=== PATIENT | male | born 1985 | race Two or more races ===

== ENCOUNTER 2024-01-10 10:57 | Inpatient (IN) | payer MEDICAID, OTHER ==
[2024-01-10] VITALS (34 sets, daily range): BP systolic 76–135; BP diastolic 14–86; PULSE 0–123; RESP 16–36; TEMP 99.7–100.4; O2SAT 92–100
[~2024-01-10] VITALS: Ht 170.2 cm; Wt 148.6 kg
[~2024-01-10 10:57] MED LIST: ALLO100T PO; AMIO200T33 PO; AMOX250C3 PO; APIX5TAB PO; ATOR-507 PO; CARV25TA55 PO; FURO40TA4 PO; INSU100I54 SC; METF-370 PO; METO-289 PO; METO2.5T PO; POTA-215 PO; SACU1TAB4 PO; SEMA4INJ SC; SENN8.6T83 PO; TAMS0.4C39 PO
[2024-01-10] MEDS: AMIODARONE 450mg/250ml AE 250 ML IV SCH ×2 (11:25→17:36)
[2024-01-10] MEDS: DOPamine 1600MCG/ML D5W 250 ML IV SCH (11:28)
[2024-01-10] MEDS: EPINEPHrine HCL 1 MG/10 ML SYRG ONE (11:53)
[2024-01-10] MEDS: AMIODARONE 450mg/250ml AE 250 ML IV ONE (11:54)
[2024-01-10] MEDS: MIDAZOLAM HCL 2MG/2ML 2ml VIAL (1mg/ml) IV ONE (11:56)
[2024-01-10] MEDS: MIDAZOLAM HCL 2MG/2ML 2ml VIAL (1mg/ml) ONE (11:56)
[2024-01-10 12:06] LABS: Hematocrit 46.9 % (41.0-53.0); Hemoglobin 15.4 g/dL (13.5-17.5); Mean Corpuscular Hgb Conc. 32.9 g/dL (32.0-36.0); Mean Corpuscular Volume 94.5 fL (80.0-100.0); Platelet Count (auto) 243 10^3/uL (140-450); Red Blood Cells 4.97 10^6/uL (4.5-5.90); Red Cell Distribution Width 16.4 % (11.8-14.3); White Blood Cell 14.1 10^3/uL (4.4-10.8)
[2024-01-10 12:13] LABS: Alanine Aminotransferase 47 U/L (7-40); Albumin 3.8 g/dL (3.2-4.8); Alkaline Phosphatase 83 U/L (46-116); Anion Gap 18 (5-15); Aspartate Aminotransferase 50 U/L (13-40); BUN/Creatinine Ratio 8.1 (10.0-20.0); Basophils % (manual) 0 (0.0-2.0); Blast Cells 0; Blood Urea Nitrogen 15 mg/dL (9-23); Calcium 9.9 mg/dL (8.7-10.4); Carbon Dioxide 21 mmol/L (20-30); Chloride 103 mmol/L (98-107); Glucose 323 mg/dL (74-106); Promyelocytes % 0; Reactive Lymphocytes 0; Sodium 142 mmol/L (136-145)
[2024-01-10 12:14] LABS: Bilirubin, Total 1.2 mg/dL (0.2-1.0); Total Protein 6.3 g/dL (5.7-8.2)
[2024-01-10 12:15] LABS: Potassium 2.4 mmol/L (3.5-5.1)
[2024-01-10] MEDS: MIDAZOLAM DRIP 50 mg/50mL 50 ML IV SCH (12:29)
[2024-01-10] MEDS: MIDAZOLAM DRIP 50 mg/50mL 50 ML IV ONE (12:29)
[2024-01-10 12:32] LABS: Band Neutrophils % (manual) 7; Eosinophils % (manual) 1 (0-7); Lymphocytes % (manual) 71 (10.0-50.0); Metamyelocytes % 1; Monocytes % (manual) 1 (0-12); Myelocytes % 1; Platelet Estimate Adequate
[2024-01-10] MEDS: PANTOPRAZOLE 40 MG/10 ML VIAL INJ IV ONE (12:37)
[2024-01-10 13:27] LABS: Acetaminophen < 2.0 UG/ML (10.0-20.0)
[2024-01-10 13:28] LABS: Salicylate < 3.0 mg/dL (2.8-20.0)
[2024-01-10] MEDS ORDERED: ONDANSETRON HCL 4 MG/2 ML VIAL IV PRN (13:30)
[2024-01-10] MEDS ORDERED: IBUPROFEN 100MG/5ML ORAL SUSP 100 MG/5 ML UD GT PRN (13:30)
[2024-01-10] MEDS ORDERED: METOPROLOL TARTRATE 1MG/1ML-5ML VIAL IV PRN (13:30)
[2024-01-10] MEDS ORDERED: DEXTROSE (50%) 50ML SYRG IV PRN (13:30)
[2024-01-10 13:35] LABS: Lactic Acid w/Reflex 5.4 mmol/L (0.4-2.0)
[2024-01-10 13:47] LABS: Amphetamine Screen, Urine Neg (NEGATIVE)
[2024-01-10 13:48] LABS: Barbiturate Scree,Urine Neg (NEGATIVE); Benzodiazephine Screen, Urine Neg (NEGATIVE); Cannabinoid Screen, Urine Neg (NEGATIVE); Cocaine Screen, Urine Neg (NEGATIVE); Opiate Scree,Urine Neg (NEGATIVE); Phencyclidine Screen, Urine Neg (NEGATIVE)
[2024-01-10 13:50] LABS: Urine Bacteria FEW /hpf (None Seen); Urine Blood 2+ /uL (Negative); Urine Clarity Turbid (Clear); Urine Color Light-Yellow (Yellow); Urine Mucus FEW (None Seen); Urine Protein, UAD 3+ (Negative); Urine Specific Gravity 1.009 (1.001-1.035); Urine Urobilinogen Normal (Negative); Urine WBC 44 /hpf (0 - 3)
[2024-01-10 13:54] LABS: Blood Alcohol < 3.0 mg/dL (<10); Magnesium 2.1 mg/dL (1.6-2.6)
[2024-01-10] MEDS ORDERED: fentaNYL Drip 2500mCg/250mlNS 250 ML IV SCH (14:00)
[2024-01-10] MEDS: fentaNYL Drip 2500mCg/250mlNS 250 ML IV SCH (14:07)
[2024-01-10] MEDS ORDERED: MORPHINE SULFATE INJ 2 MG/ml SYRG IV PRN (14:30)
[2024-01-10] MEDS ORDERED: NITROGLYCERIN 0.4 MG SL TAB SL PRN (14:30)
[2024-01-10 14:40] LABS: Base Excess 0.6 mmol/L (-2.0-3.0)
[2024-01-10] MEDS: SODIUM CHLOR 0.9% PF (SALINE LOCK) 10ML VIAL/SYR IV SCH (14:59)
[2024-01-10] MEDS: cefTRIAXone 1GM/50ML D5W 50 ML IV ONE (15:05)
[2024-01-10] MEDS: POTASSIUM CHL 20MEQ/100ML 100 ML IV SCH (16:05)
[2024-01-10 16:11] LABS: COVID19 ANTIGEN SOFIA FIA NEGATIVE (NEGATIVE)
[2024-01-10] MEDS: LORazepam 2MG/ML-1ML VIAL IV ONE (16:37)
[2024-01-10] MEDS: LORazepam 2MG/ML-1ML VIAL ONE (16:41)
[2024-01-10 16:47] LABS: LDL Cholesterol 72 mg/dL (< 100); Triglycerides 174 mg/dL (< 150)
[2024-01-10 16:49] LABS: Cholesterol 129 mg/dL (< 200); HDL Cholesterol 30 mg/dL (40-59)
[2024-01-10] MEDS: PROPOFOL 100 ML IV ONE (17:35)
[2024-01-10] MEDS: InsuLIN REG 1unit/0.01ml Soln (100units/ml) SC SCH (17:56)
[2024-01-10] MEDS: ACCU-CHEK COMFORT CURVE STRIP VI SCH (17:56)
[2024-01-10] MEDS: PROPOFOL 100 ML IV SCH (17:57)
[2024-01-10] MEDS: NOREPINEPHRINE 8 MG/250ML KIT 250 ML IV SCH (20:03)
[2024-01-10] MEDS: NOREPINEPHRINE 8 MG/250ML KIT 250 ML IV ONE (20:04)
[2024-01-10] MEDS: FAMOTIDINE (10MG/ML) 2ML VL IV SCH (21:45)
[2024-01-10] MEDS: HEPARIN SODIUM (PORCINE) 5000 UNITS/ML 1ML VIAL SC SCH (21:45)
[2024-01-11] VITALS (102 sets, daily range): BP systolic 63–157; BP diastolic 43–85; PULSE 62–116; RESP 10–43; TEMP 98.4–102.7; O2SAT 81–100
[2024-01-11] MEDS ORDERED: ACETAMINOPHEN 650 MG RECT SUPP PR PRN (01:00)
[2024-01-11] MEDS: ACETAMINOPHEN 650 MG RECT SUPP PR ONE (01:04)
[2024-01-11 04:31] LABS: Basophils # (auto) 0 10 ^3/uL (0-0.2); Basophils % (auto) 0.3 % (0.0-2.0); Eosinophils # (auto) 0 10 ^3/uL (0-0.8); Eosinophils % (auto) 0.1 % (0.0-7.0); Hematocrit 50.5 % (41.0-53.0); Hemoglobin 17.2 g/dL (13.5-17.5); Lymphocytes # (auto) 1.2 10 ^3/uL (0.4-5.4); Lymphocytes % (auto) 9.5 % (10.0-50.0); Mean Corpuscular Hemoglobin 31.3 pg (28.0-32.0); Mean Corpuscular Hgb Conc. 33.9 g/dL (32.0-36.0); Mean Corpuscular Volume 92.3 fL (80.0-100.0); Monocytes # (auto) 1.1 10 ^3/uL (0-1.3); Monocytes % (auto) 8.2 % (0.0-12.0); Neutrophils # (auto) 10.5 10 ^3/uL (1.6-8.6); Neutrophils % (auto) 81.9 % (37.0-80.0); Nucleated Red Blood Cells % 0.1 %; Platelet Count (auto) 267 10^3/uL (140-450); Red Blood Cells 5.47 10^6/uL (4.5-5.90); Red Cell Distribution Width 16.4 % (11.8-14.3); White Blood Cell 12.9 10^3/uL (4.4-10.8)
[2024-01-11 04:49] LABS: Alanine Aminotransferase 48 U/L (7-40); Alkaline Phosphatase 64 U/L (46-116); Anion Gap 8 (5-15); BUN/Creatinine Ratio 7.7 (10.0-20.0); Blood Urea Nitrogen 17 mg/dL (9-23); Calcium 9.3 mg/dL (8.7-10.4); Carbon Dioxide 22 mmol/L (20-30); Chloride 106 mmol/L (98-107); Potassium 3.7 mmol/L (3.5-5.1); Sodium 136 mmol/L (136-145)
[2024-01-11 04:50] LABS: Aspartate Aminotransferase 64 U/L (13-40)
[2024-01-11 04:51] LABS: Albumin 4.4 g/dL (3.2-4.8); Bilirubin, Total 1.6 mg/dL (0.2-1.0); Total Protein 7.4 g/dL (5.7-8.2)
[2024-01-11 05:00] LABS: Glucose 139 mg/dL (74-106)
[2024-01-11] MEDS: cefTRIAXone 1GM/50ML D5W 50 ML IV SCH (12:56)
[2024-01-11] MEDS: FUROSEMIDE 40 MG/4 ML VIAL IV SCH (12:56)
[2024-01-11] MEDS: ACETAMINOPHEN 325 MG TAB PO PRN (15:57)
[2024-01-11] MEDS: ACETAMINOPHEN 650 MG RECT SUPP PR PRN (16:53)
[2024-01-11] MEDS ORDERED: ACETAMINOPHEN IV 1000 MG/100ML (10MG/ML) IV PRN (18:00)
[2024-01-12] VITALS (103 sets, daily range): BP systolic 100–160; BP diastolic 39–78; PULSE 64–98; RESP 15–26; TEMP 72.1–103.1; O2SAT 92–100
[2024-01-12 04:11] LABS: Basophils # (auto) 0.1 10 ^3/uL (0-0.2); Basophils % (auto) 0.7 % (0.0-2.0); Eosinophils # (auto) 0.1 10 ^3/uL (0-0.8); Eosinophils % (auto) 0.7 % (0.0-7.0); Hematocrit 48.4 % (41.0-53.0); Hemoglobin 16.6 g/dL (13.5-17.5); Lymphocytes # (auto) 1.9 10 ^3/uL (0.4-5.4); Lymphocytes % (auto) 16.6 % (10.0-50.0); Mean Corpuscular Hemoglobin 31.4 pg (28.0-32.0); Mean Corpuscular Hgb Conc. 34.2 g/dL (32.0-36.0); Mean Corpuscular Volume 91.6 fL (80.0-100.0); Monocytes # (auto) 0.8 10 ^3/uL (0-1.3); Monocytes % (auto) 6.9 % (0.0-12.0); Neutrophils # (auto) 8.8 10 ^3/uL (1.6-8.6); Neutrophils % (auto) 75.1 % (37.0-80.0); Nucleated Red Blood Cells % 0.1 %; Platelet Count (auto) 276 10^3/uL (140-450); Red Blood Cells 5.28 10^6/uL (4.5-5.90); Red Cell Distribution Width 16.4 % (11.8-14.3); White Blood Cell 11.7 10^3/uL (4.4-10.8)
[2024-01-12 04:39] LABS: Alanine Aminotransferase 38 U/L (7-40); Albumin 4.2 g/dL (3.2-4.8); Alkaline Phosphatase 66 U/L (46-116); Anion Gap 13 (5-15); Aspartate Aminotransferase 75 U/L (13-40); BUN/Creatinine Ratio 10.6 (10.0-20.0); Bilirubin, Total 1.7 mg/dL (0.2-1.0); Blood Urea Nitrogen 26 mg/dL (9-23); Calcium 9.2 mg/dL (8.7-10.4); Carbon Dioxide 21 mmol/L (20-30); Chloride 104 mmol/L (98-107); Glucose 111 mg/dL (74-106); Potassium 3.3 mmol/L (3.5-5.1); Sodium 138 mmol/L (136-145); Total Protein 7.1 g/dL (5.7-8.2)
[2024-01-12 08:08] LABS: Base Excess -3.7 mmol/L (-2.0-3.0)
[2024-01-12] MEDS: POTASSIUM CHL 20MEQ/100ML 100 ML IV ONE (10:35)
[2024-01-12] MEDS: DOPamine 1600MCG/ML D5W 250 ML IV SCH (11:00)
[2024-01-12 13:00] LABS: Protein, Urine 37.2 mg/dL (0.0-11.9)
[2024-01-12 13:02] LABS: Creatinine, Urine 77.84 mg/dL (30.0-125.0)
[2024-01-12] MEDS: fentaNYL Drip 2500mCg/250mlNS 250 ML IV SCH (13:30)
[2024-01-12] MEDS: BUMETANIDE INJECTION 12.5 MG in GIVE UN-DILUTED 0 ML IV SCH (15:38)
[2024-01-12] MEDS ORDERED: MAGNESIUM SULFATE 1GM/100ML 100 ML IV ONE (17:15)
[2024-01-12] MEDS ORDERED: GLYCOPYRROLATE 0.2 MG/ML 1ML VIAL IV SCH (22:00)
[2024-01-12] MEDS: MAGNESIUM SULFATE 1GM/100ML 100 ML IV ONE (22:45)
[2024-01-13] VITALS (115 sets, daily range): BP systolic 83–146; BP diastolic 34–80; PULSE 50–89; RESP 13–24; TEMP 78.1–100; O2SAT 86–100
[2024-01-13 04:20] LABS: Basophils # (auto) 0.1 10 ^3/uL (0-0.2); Eosinophils # (auto) 0.2 10 ^3/uL (0-0.8); Eosinophils % (auto) 2.4 % (0.0-7.0); Hematocrit 48.5 % (41.0-53.0); Hemoglobin 16.8 g/dL (13.5-17.5); Lymphocytes # (auto) 1.1 10 ^3/uL (0.4-5.4); Lymphocytes % (auto) 13.5 % (10.0-50.0); Mean Corpuscular Hemoglobin 31.5 pg (28.0-32.0); Mean Corpuscular Hgb Conc. 34.6 g/dL (32.0-36.0); Mean Corpuscular Volume 91.1 fL (80.0-100.0); Monocytes # (auto) 0.6 10 ^3/uL (0-1.3); Neutrophils # (auto) 6.4 10 ^3/uL (1.6-8.6); Neutrophils % (auto) 76.1 % (37.0-80.0); Nucleated Red Blood Cells % 0.1 %; Platelet Count (auto) 221 10^3/uL (140-450); Red Blood Cells 5.33 10^6/uL (4.5-5.90); Red Cell Distribution Width 16.5 % (11.8-14.3); White Blood Cell 8.4 10^3/uL (4.4-10.8)
[2024-01-13 04:23] LABS: Anion Gap 10 (5-15); Carbon Dioxide 28 mmol/L (20-30); Chloride 102 mmol/L (98-107); Potassium 3.2 mmol/L (3.5-5.1); Sodium 140 mmol/L (136-145)
[2024-01-13 04:25] LABS: Calcium 9.4 mg/dL (8.7-10.4)
[2024-01-13 04:29] LABS: BUN/Creatinine Ratio 12.6 (10.0-20.0); Blood Urea Nitrogen 24 mg/dL (9-23); Glucose 116 mg/dL (74-106)
[2024-01-13 04:30] LABS: Magnesium 1.5 mg/dL (1.6-2.6)
[2024-01-13] MEDS: MAGNESIUM SULFATE 1GM/100ML 200 ML IV ONE (04:51)
[2024-01-13] MEDS: POTASSIUM CHL 20MEQ/100ML 100 ML IV ONE ×2 (04:51→06:00)
[2024-01-13] MEDS: MAGNESIUM SULFATE 1GM/100ML 100 ML IV SCH ×2 (05:00→18:20)
[2024-01-13] MEDS: Nepro With Carb Steady 1 Liter Bottle GT SCH (06:45)
[2024-01-13 08:02] LABS: Base Excess 1.7 mmol/L (-2.0-3.0)
[2024-01-13] MEDS: POTASSIUM CHL 20MEQ/100ML 100 ML IV SCH ×2 (08:19→18:20)
[2024-01-13 09:33] LABS: Hepatitis B Surface Antigen Negative (Negative)
[2024-01-13 09:55] LABS: Hepatitis C Antibody Negative (Negative)
[2024-01-13 11:53] LABS: Basophils # (auto) 0.1 10 ^3/uL (0-0.2); Basophils % (auto) 0.8 % (0.0-2.0); Eosinophils # (auto) 0.4 10 ^3/uL (0-0.8); Eosinophils % (auto) 4.1 % (0.0-7.0); Hematocrit 48.1 % (41.0-53.0); Hemoglobin 16.6 g/dL (13.5-17.5); Lymphocytes # (auto) 1.5 10 ^3/uL (0.4-5.4); Lymphocytes % (auto) 16.5 % (10.0-50.0); Mean Corpuscular Hemoglobin 31.1 pg (28.0-32.0); Mean Corpuscular Hgb Conc. 34.5 g/dL (32.0-36.0); Mean Corpuscular Volume 90.4 fL (80.0-100.0); Monocytes # (auto) 0.8 10 ^3/uL (0-1.3); Monocytes % (auto) 8.6 % (0.0-12.0); Neutrophils # (auto) 6.5 10 ^3/uL (1.6-8.6); Nucleated Red Blood Cells % 0.2 %; Platelet Count (auto) 239 10^3/uL (140-450); Red Blood Cells 5.32 10^6/uL (4.5-5.90); Red Cell Distribution Width 16.4 % (11.8-14.3); White Blood Cell 9.2 10^3/uL (4.4-10.8)
[2024-01-13] MEDS ORDERED: MAGNESIUM SULFATE 1GM/100ML 100 ML IV SCH (12:00)
[2024-01-13 17:18] LABS: Alanine Aminotransferase 32 U/L (7-40); Albumin 3.5 g/dL (3.2-4.8); Alkaline Phosphatase 66 U/L (46-116); Anion Gap 8 (5-15); Aspartate Aminotransferase 99 U/L (13-40); BUN/Creatinine Ratio 16.6 (10.0-20.0); Bilirubin, Total 1.4 mg/dL (0.2-1.0); Blood Urea Nitrogen 27 mg/dL (9-23); Calcium 9.2 mg/dL (8.7-10.4); Carbon Dioxide 29 mmol/L (20-30); Chloride 104 mmol/L (98-107); Glucose 131 mg/dL (74-106); Magnesium 1.6 mg/dL (1.6-2.6); Phosphorus 2.4 mg/dL (2.4-5.1); Potassium 3.3 mmol/L (3.5-5.1); Sodium 141 mmol/L (136-145); Total Protein 6.1 g/dL (5.7-8.2)
[2024-01-13] MEDS ORDERED: AMIODARONE 450mg/250ml AE 250 ML IV SCH (18:00)
[2024-01-13] MEDS: LIDOCAINE 4MG/ML IV SOLN 500 ML IV SCH (18:45)
[2024-01-13] MEDS: levETIRAcetam 1000 mg/100ml 100 ML IV SCH (21:51)
[2024-01-14] VITALS (107 sets, daily range): BP systolic 96–135; BP diastolic 39–77; PULSE 51–72; RESP 11–24; TEMP 99–100.8; O2SAT 86–100
[2024-01-14 01:41] LABS: Basophils # (auto) 0.1 10 ^3/uL (0-0.2); Basophils % (auto) 0.7 % (0.0-2.0); Eosinophils # (auto) 0.3 10 ^3/uL (0-0.8); Eosinophils % (auto) 4.7 % (0.0-7.0); Hemoglobin 16.9 g/dL (13.5-17.5); Lymphocytes # (auto) 1.5 10 ^3/uL (0.4-5.4); Lymphocytes % (auto) 20.4 % (10.0-50.0); Mean Corpuscular Hemoglobin 31.4 pg (28.0-32.0); Mean Corpuscular Hgb Conc. 34.5 g/dL (32.0-36.0); Mean Corpuscular Volume 90.9 fL (80.0-100.0); Monocytes # (auto) 0.8 10 ^3/uL (0-1.3); Monocytes % (auto) 10.2 % (0.0-12.0); Neutrophils # (auto) 4.8 10 ^3/uL (1.6-8.6); Nucleated Red Blood Cells % 0.2 %; Platelet Count (auto) 232 10^3/uL (140-450); Red Blood Cells 5.39 10^6/uL (4.5-5.90); Red Cell Distribution Width 16.6 % (11.8-14.3); White Blood Cell 7.4 10^3/uL (4.4-10.8)
[2024-01-14 01:52] LABS: Chloride 106 mmol/L (98-107); Potassium 3.7 mmol/L (3.5-5.1); Sodium 138 mmol/L (136-145)
[2024-01-14 01:53] LABS: Anion Gap 6 (5-15); Calcium 9.4 mg/dL (8.7-10.4); Carbon Dioxide 26 mmol/L (20-30)
[2024-01-14 01:58] LABS: BUN/Creatinine Ratio 11.8 (10.0-20.0); Blood Urea Nitrogen 18 mg/dL (9-23); Glucose 121 mg/dL (74-106); Magnesium 1.7 mg/dL (1.6-2.6)
[2024-01-14] MEDS: MAGNESIUM SULFATE 1GM/100ML 100 ML IV ONE (04:08)
[2024-01-14] MEDS: POTASSIUM CHL 20MEQ/100ML 100 ML IV ONE ×2 (04:08→08:44)
[2024-01-14 07:51] LABS: Base Excess 3.7 mmol/L (-2.0-3.0)
[2024-01-14] MEDS: MAGNESIUM SULFATE 1GM/100ML 100 ML IV SCH (08:44)
[2024-01-14] MEDS ORDERED: Nepro With Carb Steady 1 Liter Bottle GT SCH (09:00)
[2024-01-14] MEDS: NOREPINEPHRINE 8 MG/250ML KIT 250 ML IV SCH (10:05)
[2024-01-14 11:50] LABS: INR 1.07 (0.9-1.15); Partial Thromboplastin Time 28.2 SEC (24.5-34.5); Prothrombin Time 11.3 sec (9.3-11.8)
[2024-01-14] MEDS: IODIXANOL 320MG/ML 100ML BTL IV ONE (12:23)
[2024-01-14] MEDS: ANGIOMAX 250 MG VIAL IV ONE (12:38)
[2024-01-14] MEDS: HEPARIN SODIUM (PORCINE) 5000 UNITS/ML 1ML VIAL ONE (12:39)
[2024-01-14] MEDS: VERAPAMIL 2.5MG/ML INJ 2ML VIAL IV ONE (12:39)
[2024-01-14] MEDS: LIDOCAINE 2%HCL (LOCAL ANESTH.) INJ 10ml MDV ONE (12:39)
[2024-01-14] MEDS: SODIUM CHL 0.9% 0 ML ONE (12:39)
[2024-01-14] MEDS: ATROPINE SULF 1 MG/10ml SYR ONE (13:23)
[2024-01-14 14:13] LABS: Potassium 3.3 mmol/L (3.5-5.1)
[2024-01-14 14:20] LABS: Magnesium 1.7 mg/dL (1.6-2.6)
[2024-01-14] MEDS: MAGNESIUM SULFATE 1GM/100ML 100 ML IV PRN (14:32)
[2024-01-14] MEDS: POTASSIUM CHL 20MEQ/100ML 100 ML IV PRN (14:44)
[2024-01-14 21:23] LABS: Potassium 3.8 mmol/L (3.5-5.1)
[2024-01-14 21:30] LABS: Magnesium 1.5 mg/dL (1.6-2.6)
[2024-01-15] VITALS (48 sets, daily range): BP systolic 107–137; BP diastolic 32–79; PULSE 50–74; RESP 19–24; TEMP 99.3–100.4; O2SAT 98–100
[2024-01-15 04:30] LABS: Chloride 103 mmol/L (98-107); Potassium 3.5 mmol/L (3.5-5.1); Sodium 140 mmol/L (136-145)
[2024-01-15 04:31] LABS: Anion Gap 8 (5-15); Carbon Dioxide 29 mmol/L (20-30)
[2024-01-15 04:32] LABS: Calcium 9.4 mg/dL (8.7-10.4)
[2024-01-15 04:36] LABS: Glucose 103 mg/dL (74-106)
[2024-01-15 04:37] LABS: Magnesium 1.7 mg/dL (1.6-2.6)
[2024-01-15 04:40] LABS: BUN/Creatinine Ratio 11.5 (10.0-20.0); Blood Urea Nitrogen 16 mg/dL (9-23)
[2024-01-15] MEDS: PANTOPRAZOLE 40 MG TAB PO SCH (05:30)
[2024-01-15 08:52] LABS: Base Excess 4.6 mmol/L (-2.0-3.0)
[2024-01-15 10:49] LABS: Potassium 3.8 mmol/L (3.5-5.1)
[2024-01-15 10:56] LABS: Magnesium 1.6 mg/dL (1.6-2.6)
== END 2024-01-15 18:35 | DRG 130 ==
LOC: EDBD 10:57 → ER 10:57 → OVERFLOW 14:18 → ICU WEST 17:10
PROVIDERS: ADMIT Nurse Practitioner Family; ATTEND Nurse Practitioner Acute Care
PROC: 5A1955Z Respiratory Ventilation, Greater than 96 Consecutive Hours (ICD-10-PCS; principal; 2024-01-10)
PROC: 06HY33Z Insertion of Infusion Device into Lower Vein, Percutaneous Approach (ICD-10-PCS; 2024-01-10)
PROC: B54BZZA Ultrasonography of Right Lower Extremity Veins, Guidance (ICD-10-PCS; 2024-01-10)
PROC: 0BH18EZ Insertion of Endotracheal Airway into Trachea, Via Natural or Artificial Opening Endoscopic (ICD-10-PCS; 2024-01-10)
PROC: 5A12012 Performance of Cardiac Output, Single, Manual (ICD-10-PCS; 2024-01-10)
PROC: 5A2204Z Restoration of Cardiac Rhythm, Single (ICD-10-PCS; 2024-01-10)
PROC: 4A023N7 Measurement of Cardiac Sampling and Pressure, Left Heart, Percutaneous Approach (ICD-10-PCS; 2024-01-14)
PROC: B211YZZ Fluoroscopy of Multiple Coronary Arteries using Other Contrast (ICD-10-PCS; 2024-01-14)
PROC: 5A2204Z Restoration of Cardiac Rhythm, Single (ICD-10-PCS; 2024-01-15)
PROC: 5A12012 Performance of Cardiac Output, Single, Manual (ICD-10-PCS; 2024-01-15)
DX: J96.01 Acute respiratory failure with hypoxia (principal); I46.9 Cardiac arrest, cause unspecified; N17.0 Acute kidney failure with tubular necrosis; G93.49 Other encephalopathy; I21.4 Non-ST elevation (NSTEMI) myocardial infarction; Z68.43 Body mass index [BMI] 50.0-59.9, adult; I42.8 Other cardiomyopathies; I50.23 Acute on chronic systolic (congestive) heart failure; E11.65 Type 2 diabetes mellitus with hyperglycemia; Z20.822 Contact with and (suspected) exposure to COVID-19; Z66 Do not resuscitate; E87.6 Hypokalemia; I48.0 Paroxysmal atrial fibrillation; I49.3 Ventricular premature depolarization; I13.0 Hypertensive heart and chronic kidney disease with heart failure and stage 1 through stage 4 chronic kidney disease, or unspecified chronic kidney disease; E78.5 Hyperlipidemia, unspecified; E66.01 Morbid (severe) obesity due to excess calories; E11.22 Type 2 diabetes mellitus with diabetic chronic kidney disease; I49.01 Ventricular fibrillation; N18.32 Chronic kidney disease, stage 3b; E83.42 Hypomagnesemia; I47.21 Torsades de pointes; G93.1 Anoxic brain damage, not elsewhere classified; Z79.01 Long term (current) use of anticoagulants; Z87.891 Personal history of nicotine dependence; Z86.718 Personal history of other venous thrombosis and embolism
CPT/HCPCS: 31500; 36415; 36556; 36600; 70450; 70551; 71045; 71250; 72125; 74176; 80048; 80053; 80061; 80307; 80320; 80329; 81001; 82140; 82306; 82570; 82805; 82962; 83036; 83605; 83735; 83880; 83970; 84100; 84132; 84156; 84300; 84443; 84484; 85007; 85025; 85027; 85610; 85730; 86803; 87040; 87070; 87077; 87081; 87086; 87186; 87205; 87340; 87426; 92950; 92960; 93005; 93306; 93458; 94002; 94003; 95819; 99152; G0378; J2001; J2250; J2470; J2704; J3480; J3490; J7060; Q9967